=== PATIENT | male | born 2005 | race African-American/Black ===

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

== ENCOUNTER 2023-11-05 07:35 | Emergency (ER) | payer MEDICAID ==
[~2023-11-05] VITALS: Ht 170.2 cm; Wt 66.0 kg
[~2023-11-05 07:35] MED LIST: NAPR-681 MT
[2023-11-05 07:55] VITALS: BP 136/65; TEMP 97.7
[2023-11-05 11:00] VITALS: PULSE 100; RESP 24; O2SAT 98
[2023-11-05] MEDS: IPRATROPIUM/ALBUTEROL 0.5-3(2.5)MG/3ML NEB HHN ONE ×2 (11:00→13:00)
[2023-11-05 11:02] LABS: BASOPHILS % 0.8 % (0.0-2.0); EOSINOPHILS % 3.4 % (0.0-5.0); HEMOGLOBIN. 16.2 g/dL (14.0-18.0); LYMPHOCYTES % 19.5 % (20.0-50.0); MEAN CORPUSCULAR HEMOGLOBIN 33.3 pg (28.0-32.0); MEAN CORPUSCULAR HGB CONC 34.5 g/dL (31.0-37.0); MEAN CORPUSCULAR VOLUME 96.5 fL (80.0-94.0); MEAN PLATELET VOLUME 10.3 fl (7.4-10.4); MONOCYTES % 13.1 % (2.0-8.0); NEUTROPHILS % 63.2 % (40.0-76.0); PLATELET 207 x1000/uL (130-400); RED BLOOD CELL COUNT 4.87 mill/uL (4.7-6.1); RED CELL DISTRIBUTION WIDTH 12.8 % (11.6-14.6); WHITE BLOOD COUNT 4.1 x1000/uL (4.5-11.0)
[2023-11-05] MEDS ORDERED: ALBU6.7H15 INH (11:34)
[2023-11-05 11:52] LABS: ALANINE AMINOTRANSFERASE 16 IU/L (10-49); ALBUMIN 4.8 g/dL (3.2-4.8); ASPARTATE AMINOTRANSFERASE 23 IU/L (<34); BILIRUBIN TOTAL 1.2 mg/dL (0.1-1.0); CALCIUM 9.3 mg/dL (8.7-10.4); CARBON DIOXIDE 25 mEq/L (21-32); CHLORIDE 103 mEq/L (98-107); CREATININE 0.9 mg/dL (0.6-1.3); GLUCOSE 76 mg/dL (70-105); POTASSIUM 3.5 mEq/L (3.5-5.1); PROTEIN TOTAL 7.6 g/dL (6.0-8.3); SODIUM 137 mEq/L (136-145)
[2023-11-05 11:57] LABS: UREA NITROGEN BLOOD < 5 mg/dL (9-23)
[2023-11-05] MEDS: DEXAMETHASONE 4MG TABLET PO ONE (12:36)
[2023-11-05 13:00] VITALS: PULSE 96; RESP 24
[2023-11-05] MEDS ORDERED: PRED10TA23 MT (13:19)
== END 2023-11-05 14:03 | disposition home or self-care (01) ==
LOC: ER 07:35
DX: J45.901 Unspecified asthma with (acute) exacerbation (principal)
CPT/HCPCS: 80053; 85025; 36415; 71045; 94640; 93005; 99285; J8540; Z7610 ×2

== ENCOUNTER 2024-03-26 03:58 | Emergency (ER) | payer MEDICAID ==
[~2024-03-26] VITALS: Ht 172.7 cm; Wt 73.0 kg
[~2024-03-26 03:58] MED LIST changes: +ALBU6.7H15 INH; +PRED10TA23 MT
[2024-03-26 04:24] VITALS: O2SAT 100
[2024-03-26 05:06] VITALS: BP 113/77; PULSE 81; RESP 16; TEMP 36.89184; O2SAT 98
== END 2024-03-26 05:07 | disposition home or self-care (01) ==
LOC: ER 03:58
DX: T16.1XXA Foreign body in right ear, initial encounter (principal); J45.909 Unspecified asthma, uncomplicated; X58.XXXA Exposure to other specified factors, initial encounter; Y93.89 Activity, other specified; Y92.89 Other specified places as the place of occurrence of the external cause; Y99.8 Other external cause status
CPT/HCPCS: 69200; 99284

== ENCOUNTER 2025-04-16 17:54 | Emergency (ER) | payer MEDICAID ==
[~2025-04-16] VITALS: Ht 170.2 cm; Wt 73.0 kg
[2025-04-16 18:03] VITALS: BP 122/77; TEMP 37.6; O2SAT 99
[2025-04-16 19:48] VITALS: PULSE 70; RESP 16; O2SAT 99
[2025-04-16] MEDS: IPRATROPIUM/ALBUTEROL 0.5-3(2.5)MG/3ML NEB HHN ONE (19:48)
[2025-04-16] MEDS ORDERED: ALBU18HF2 IH (19:54)
[2025-04-16] MEDS ORDERED: METH4TAB95 MT (19:54)
[2025-04-16] MEDS ORDERED: BENZ100C86 MT (21:05)
[2025-04-16 21:45] LABS: INFLUENZA TYPE A Presumptive Negative (Pres. Neg.); INFLUENZA TYPE B Presumptive Negative (Pres. Neg.)
== END 2025-04-16 21:20 | disposition home or self-care (01) ==
LOC: ER 17:54
DX: J45.901 Unspecified asthma with (acute) exacerbation (principal); F17.200 Nicotine dependence, unspecified, uncomplicated; Z71.6 Tobacco abuse counseling; Z79.1 Long term (current) use of non-steroidal anti-inflammatories (NSAID); Z20.822 Contact with and (suspected) exposure to COVID-19
CPT/HCPCS: 87804 ×2; 94640; 99283; 87426; Z7610 ×2; 94070; 98960